=== PATIENT | female | born 1965 | race Caucasian/White ===

== ENCOUNTER 2017-10-11 13:01 | Emergency (ER) | payer OTHER ==
[~2017-10-11] VITALS: Ht 170.2 cm; Wt 91.0 kg
[2017-10-11 13:02] VITALS: BP 124/60; PULSE 82; RESP 16; TEMP 98.2; O2SAT 97
[2017-10-11] MEDS ORDERED: ROBA750T PO (14:35)
[2017-10-11] MEDS ORDERED: IBUP1TAB7 PO (14:35)
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
== END 2017-10-11 14:54 | disposition home or self-care (01) ==
LOC: PHEFT 13:01
DX: S39.012A Strain of muscle, fascia and tendon of lower back, initial encounter (principal); Z72.0 Tobacco use; V49.40XA Driver injured in collision with unspecified motor vehicles in traffic accident, initial encounter
CPT/HCPCS: 99283